=== PATIENT | female | born 1975 | race Hispanic/Latino ===

== ENCOUNTER 2018-03-20 08:43 | Emergency (ER) | payer OTHER ==
[2018-03-20] MEDS ORDERED: IBUPROFEN 800 MG TAB ONE (08:57)
== END 2018-03-20 09:33 | disposition home or self-care (01) ==
LOC: EDH 08:43
DX: S92.351A Displaced fracture of fifth metatarsal bone, right foot, initial encounter for closed fracture (principal); X50.0XXA Overexertion from strenuous movement or load, initial encounter; Y93.89 Activity, other specified; Y92.098 Other place in other non-institutional residence as the place of occurrence of the external cause; Y99.8 Other external cause status
CPT/HCPCS: 29515; 73610; 73630